=== PATIENT | female | born 1970 | race Caucasian/White ===

== ENCOUNTER 2019-09-01 15:28 | Emergency (ER) | payer BC, SELFPAY ==
[2019-09-01 15:55] VITALS: BP 150/81; PULSE 83; RESP 19; TEMP 36.8; O2SAT 100; BMI 26.5
--- NOTE | 2019-09-01 16:02 | HMH.EDUTC ---
[facility] [place] Disposition Clinical Impression: Upper respiratory infection Qualifiers: URI type: unspecified URI Qualified Code(s): J06.9 - Acute upper respiratory infection, unspecified Disposition: Home, Self-Care Condition on Discharge: Good Instructions: Sore Throat, DI for Fever (Symptom) -- Adult, Acetaminophen (Alternative Therapy), Preventing the Spread of Coronavirus Discharge Instructions Additional Instructions: You was given handout with instructions on how to Self Quarantine while awaiting your COVID results and how to Self Isolate if you have a positive result make sure to follow these instructions closely No work until negative COVID test *Monitor Temp, Over the counter Motrin or Tylenol as directed/as needed Tylenol every 4 hours and Motrin every 6 hours (as long as your family doctor has told you that you can take it) for fever or pain. and straight to ER if unable to lower temp less than 101.0 after medication given *Warm salt water gargles may help to soothe the throat *Throat Lozenges *Warm fluids like tea with honey may help to soothe the throat *Sleep elevated *Humidifier/Vaporizer Follow up IMMEDIATELY for new or worsening symptoms or no Noticeable improvement over the next 48-72 hours. 911 for difficulty breathing or swallowing Straight to ER if any life threatening symptoms Prescriptions: Fluticasone Propionate [Flonase 50mcg nasal spray 16gm] 1 spr NS DAILY #1 bottle Transmission Status: Pending to [id number] Azithromycin [Z-Leonidas 250mg Tab] 250 mg PO DIRECTED #6 tab Transmission Status: [id number] Referrals: Joanna Gonzalez PA [Primary Care Provider] - As needed Forms: Work/School Release Medical Decision Making - Venancio Inquiry Pt receiving controlled substance: No Venancio was queried for this patient: No Vital Signs: 09/01/19 15:55 Temperature 98.2 F Temperature Source Temporal Artery Scan Pulse Rate [Right Brachial] 83 Respiratory Rate 19 Blood Pressure [Right Arm] 150/81 H Blood Pressure Mean [Right Arm] 104 Blood Pressure Source [Right Arm] Automatic Cuff Blood Pressure Position [Right Arm] Sitting 02 Sat by Pulse Oximetry 100 Oxygen Delivery Method Room Air - Lab Data Lab results reviewed: Yes: I reviewed the patient's lab results. Orders (Tests/Meds): ORDERS Category Date Time Status SARS-CoV-2, MARCE[place]O ([place]) Stat Lab 09/01/19 15:41 Ordered [facility] HPI - General Stated complaint: fever,sore throat,congestion,cough,body pain Time Seen by Provider: 09/01/19 16:02 Mode of Arrival: Ambulatory Source of Information: Patient Limitations: No Limitations Description of Symptoms (Recalled from Triage Doc. by RN): flu like symptoms, sore throat, exposure to covid positive person HEENT Symptoms (Recalled from RN notes): Yes Resp Symptoms (Recalled from RN notes): Yes Skin Symptoms (Recalled from RN notes): No MS Symptoms (Recalled from RN notes): No Functional Status (Recalled from RN notes): none - History of Present Illness Provider Complaint: Patient states that she has worked beside several people who has tested positive for COVID19 States that for the last couple of days she has been having sore throat and feeling achy all over like she has the flu States that today she was still feeling bad so she came in to get checked for strep and COVID - Related Data Home Medications Medication Instructions Recorded Confirmed Rosuvastatin Calcium 10 mg PO DAILY 09/01/19 09/01/19 hydroCHLOROthiazide [HCTZ 12.5mg 12.5 mg PO DAILY 09/01/19 09/01/19 cap] lisinopriL [Lisinopril 20mg Tab] 20 mg PO DAILY 09/01/19 09/01/19 Previous Rx's Medication Instructions Recorded Azithromycin [Z-Leonidas 250mg Tab] 250 mg PO DIRECTED #6 tab 09/01/19 Fluticasone Propionate [Flonase 1 spr NS DAILY #1 bottle 09/01/19 50mcg nasal spray 16gm] Allergies Allergy/AdvReac Type Severity Reaction Status Date / Time Sulfa (Sulfonamide Allergy
[2019-09-01 16:10] VITALS: BP 150/81; PULSE 83; RESP 19; TEMP 36.8; O2SAT 100
[2019-09-01 16:56] LABS: UTC Strep Screen (Rapid) Negative (Negative)
[2019-09-04 06:20] LABS: Covid-19 Nasal PCR Sendout UK NOT DETECTED
== END 2019-09-01 16:12 | disposition home or self-care (01) ==
PROVIDERS: Emergency Provider Nurse Practitioner; PCP Nurse Practitioner Family
DX: Z20.828 Contact with and (suspected) exposure to other viral communicable diseases (principal); J06.9 Acute upper respiratory infection, unspecified; I10 Essential (primary) hypertension; Z88.2 Allergy status to sulfonamides; F17.210 Nicotine dependence, cigarettes, uncomplicated
CPT/HCPCS: 87880; 99202; U0003

== ENCOUNTER 2020-09-28 09:04 | Emergency (ER) | payer BC, SELFPAY ==
[2020-09-28 09:20] VITALS: BP 170/98; PULSE 81; RESP 18; TEMP 37; O2SAT 97; BMI 29.9
--- NOTE | 2020-09-28 09:44 | HMH.EDUTC ---
[facility] [place] Clinical Impression: [place] eye disease of right eye Disposition: Home, Self-Care Condition on Discharge: Good Instructions: DI for Conjunctivitis Additional Instructions: follow up with eye md tomorrow drops as ordered if symptoms worsen return or be seen in ed Prescriptions: Erythromycin Base [Erythromycin 1gm opth ointment] 1 gm OP BID 7 Days #1 tube Transmission Status: Pending to [id number] Referrals: Provider,Referral, MD [Primary Care Provider] - Time of Disposition: 09:50 Medical Decision Making - Venancio Inquiry Pt receiving controlled substance: No Vital Signs: 09/28/20 09:20 Temperature 98.6 F Temperature Source Oral Pulse Rate [Right Brachial] 81 Respiratory Rate 18 Blood Pressure [Right Arm] 170/98 H Blood Pressure Mean [Right Arm] 122 Blood Pressure Source [Right Arm] Automatic Cuff Blood Pressure Position [Right Arm] Sitting 02 Sat by Pulse Oximetry 97 Oxygen Delivery Method Room Air [facility] [place] HPI - General Chief complaint: Urgent Treatment Center Stated complaint: right eye pain and swelling Time Seen by Provider: 09/28/20 09:44 Mode of Arrival: Ambulatory Source of Information: Patient Limitations: No Limitations Description of Symptoms (Recalled from Triage Doc. by RN): PATIENT C/O SWELLING, REDNESS AND DRAINAGE TO RIGHT EYE. SHE HAS BEEN SEEING HER PCP AND EYE DOCTOR FOR A FEW MONTHS FOR THIS PROBLEM HEENT Symptoms (Recalled from RN notes): No Resp Symptoms (Recalled from RN notes): No Skin Symptoms (Recalled from RN notes): No MS Symptoms (Recalled from RN notes): Yes Functional Status (Recalled from RN notes): WNL - History of Present Illness Provider Complaint: 49 yr old female presents for swelling, redness and drainage to rt eye. pt states she saw eye md a few months ago for same problem in the left eye. pt states she has been using the eye drops that were prescribed the last time but they have not helped. - Related Data Home Medications Medication Instructions Recorded Confirmed Rosuvastatin Calcium 10 mg PO DAILY 09/01/19 09/01/19 hydroCHLOROthiazide [HCTZ 12.5mg 12.5 mg PO DAILY 09/01/19 09/01/19 cap] lisinopriL [Lisinopril 20mg Tab] 20 mg PO DAILY 09/01/19 09/01/19 Previous Rx's Medication Instructions Recorded Azithromycin [Z-Leonidas 250mg Tab] 250 mg PO DIRECTED #6 tab 09/01/19 Fluticasone Propionate [Flonase 1 spr NS DAILY #1 bottle 09/01/19 50mcg nasal spray 16gm] Erythromycin Base [Erythromycin 1 gm OP BID 7 Days #1 tube 09/28/20 1gm opth ointment] Allergies Allergy/AdvReac Type Severity Reaction Status Date / Time Sulfa (Sulfonamide Allergy Verified 09/01/19 15:53 Antibiotics) - Worker's Comp Is this a Worker's Comp case?: No [facility] History - Hepatitis A Screen Drug use history?: No High risk sexual behaviors?: No History of sexually transmitted infection?: No Currently employed?: No Childcare worker?: No Do you have indoor plumbing?: Yes Do you have electricity?: Yes Attestation statement:: This patient has been screened for Hepatitis A risk factors. I have reviewed the patient's past medical history: Yes Medical History: Denies:: Cancer, Diabetes Mellitus Type 1, Diabetes Mellitus Type 2, Internal Pacemaker, MRSA Other Surgeries: No: Pacemaker Amputation: No Fractures: No - Social History Smoking Status: Current every day smoker Tobacco Type: cigarettes # Packs/Day (cigarettes): 1 Alcohol Intake: never Occupational Status: employed ROS Obtained: Yes Systems reviewed as appropriate & no additional complaints - Constitutional Constitutional: Reports system reviewed and no additional complaints, except as docu, Denies fever(s) - Eyes Eyes: Reports system reviewed and no additional complaints, except as docu, Reports as per HPI, Denies blurry vision, Denies change in vision, Reports eye discharge, Denies floaters, Reports irritation, Reports itchy eyes, Denies sensitivity to
[2020-09-28 09:50] VITALS: BP 170/98; PULSE 81; RESP 18; TEMP 37; O2SAT 97
== END 2020-09-28 09:54 | disposition home or self-care (01) ==
PROVIDERS: Emergency Provider Nurse Practitioner Family
DX: H10.021 Other mucopurulent conjunctivitis, right eye (principal); F17.210 Nicotine dependence, cigarettes, uncomplicated
CPT/HCPCS: 99202; G0463

== ENCOUNTER → 2021-04-02 08:09 | Outpatient (CLI) | payer BC, SELFPAY ==
[2021-04-02 08:49] LABS: Adenovirus,PCR Not Detected (NotDetected); Bordetella Pertussis Not Detected (NotDetected); Chlamydophila Pneumoniae, PCR Not Detected (NotDetected); Coronavirus 229E Not Detected (NotDetected); Coronavirus NL63 Not Detected (NotDetected); Coronavirus OC43 Not Detected (NotDetected); Coronovirus HKU1,PCR Not Detected (NotDetected); Human Metapneumovirus Not Detected (NotDetected); Influenza A, PCR Not Detected (NotDetected); Influenza AH1, 2009 Not Detected (NotDetected); Influenza AH1, PCR Not Detected (NotDetected); Influenza AH3,PCR Not Detected (NotDetected); Influenza B, PCR Not Detected (NotDetected); Mycoplasma Pneumoniae, PCR Not Detected (NotDetected); Parainfluenza 1, PCR Not Detected (NotDetected); Parainfluenza 2, PCR Not Detected (NotDetected); Parainfluenza 3, PCR Not Detected (NotDetected); Parainfluenza 4, PCR Not Detected (NotDetected); Respiratory Syncytial Virus Not Detected (NotDetected); Rhinovirus/Enterovirus Not Detected (NotDetected)
== END ==
PROVIDERS: PCP Nurse Practitioner Family; Visit Provider Nurse Practitioner Family
DX: J20.9 Acute bronchitis, unspecified (principal); J02.9 Acute pharyngitis, unspecified
CPT/HCPCS: 87486; 87581; 87632; 87798

== ENCOUNTER 2022-02-27 09:13 | Emergency (ER) | payer BC, SELFPAY ==
[2022-02-27 09:35] VITALS: BP 137/79; PULSE 97; RESP 19; TEMP 37.3; O2SAT 98; BMI 31.3
[2022-02-27 10:13] LABS: UTC Influenza A Antigen Negative (Negative)
[2022-02-27 10:13] LABS: UTC Strep Screen (Rapid) Negative (Negative)
[2022-02-27 10:14] LABS: UTC Influenza B Antigen Negative (Negative)
--- NOTE | 2022-02-27 10:14 | EXP.UTC ---
Discharge Plan Disposition Patient Disposition: Home, Self-Care Condition: Good Prescriptions Prescriptions: No Action lisinopril 20 MG tablet 20 mg PO DAILY hydrochlorothiazide 12.5 MG capsule 12.5 mg PO DAILY rosuvastatin 10 MG tablet 10 mg PO DAILY azithromycin 250 MG tablet 250 mg PO DIRECTED Qty: 6 0RF Rx Instructions: Take two (2) tablets on day #1, then one (1) tablet day #2 thru #5 fluticasone propionate 120 SPR/BOT bottle 1 spr NS DAILY Qty: 1 0RF Rx Instructions: each nostril daily erythromycin 1 GM ointment 1 gm OP BID 7 Days Qty: 1 0RF Rx Instructions: apply to bottom lid of rt eye bid Referrals Follow up/Referrals: Provider,Referral, MD [Primary Care Provider] - See instructions Activity Restrictions/Add. Instructions Additional Instructions/Restrictions: No sign of a bacterial infection. Likely viral. Viruses can take 7-14 days to run their course. Nasal saline and bulb syringe or nose Cari to remove nasal drainage to help with nasal congestion. Hard to eat, drink, sleep with nasal congestion so important to keep this cleaned out. Monitor temp. Tylenol or Motrin as needed for pain or fever Encourage fluids, water, Gatorade, Powerade, Pedialyte if infant/toddler/child Warm salt water gargles Warm fluids Sore throat lozenges Sleep elevated Humidifier/vaporizer Follow-up immediately for new or worsening symptoms or no noticeable improvement over the next 48-72 hours. Clinical Impressions Clinical Impression: Upper respiratory infection Instructions Patient Instructions: DI for Viral Upper Respiratory Infection -- Adult Discharge ED Provider: Mason ([facility] [facility] [place] General Stated complaint: weakness, cough, sore throat Mode of Arrival: Ambulatory Source of Information: Patient Limitations: No Limitations Time Seen by Provider: 02/27/22 10:14 Description of Symptoms (Recalled from Triage Doc. by RN): PATIENT C/O BODY ACHES, CHILLS, COUGH AND FEVER SINCE YESTERDAY HEENT Symptoms (Recalled from RN notes): No Resp Symptoms (Recalled from RN notes): Yes Skin Symptoms (Recalled from RN notes): No MS Symptoms (Recalled from RN notes): No Functional Status (Recalled from RN notes): WNL History of Present Illness Provider Complaint: 51 yr old female presents for body aches,chills,fever, cough, nasal congestion and scratchy throat for 2 days Related Data Home Medications Medication Instructions Recorded Confirmed hydrochlorothiazide 12.5 mg capsule 12.5 mg PO DAILY High blood 09/01/19 09/01/19 pressure lisinopril 20 mg tablet 20 mg PO DAILY High blood pressure 09/01/19 09/01/19 rosuvastatin 10 mg tablet 10 mg PO DAILY Cholesterol 09/01/19 09/01/19 Previous Rx's Medication Instructions Recorded azithromycin 250 mg tablet 250 mg PO DIRECTED #6 tabs 09/01/19 fluticasone propionate 50 1 spr NS DAILY ##1 09/01/19 mcg/actuation nasal spray,suspension erythromycin 5 mg/gram (0.5 %) eye 1 gm OP BID 7 days #1 tube 09/28/20 ointment Allergies Allergy/AdvReac Type Severity Reaction Status Date / Time Sulfa (Sulfonamide Allergy Verified 09/01/19 15:53 Antibiotics) Worker's Comp Is this a Worker's Comp case?: No [facility] Disclaimer: The information contained in this section may have been updated after the patient was seen, as this information can be updated by other users. Medical History , [employer]) Hyperlipidemia Hypertension Kidney stone Surgical History , [employer]) History of tubal ligation Social History , [employer]) Smoking Status: Current every day smoker tobacco type: cigarettes packs per day: 1 alcohol intake: never current occupational status: employed Travel in the last 8 weeks: None caffeine: Yes ROS Obtained: Yes All system
[2022-02-27 10:31] VITALS: BP 137/79; PULSE 97; RESP 19; TEMP 37.3; O2SAT 98
== END 2022-02-27 10:33 | disposition home or self-care (01) ==
PROVIDERS: Emergency Provider Nurse Practitioner Family
DX: U07.1 COVID-19 (principal); R53.1 Weakness; R05.9 Cough, unspecified; J02.9 Acute pharyngitis, unspecified
CPT/HCPCS: 87804; 87880; 99212; 99213; C9803; G0463; U0003; U0005

== ENCOUNTER → 2022-08-18 16:14 | Outpatient (CLI) | payer BC, SELFPAY ==
--- NOTE | 2022-08-18 16:15 | MM_ITS ---
PROCEDURE INFORMATION: Exam: Bilateral Screening 3D Mammography Exam date and time: 08/18/2022 4:07 PM Age: 51 years old Clinical indication: Screening examination TECHNIQUE: Imaging protocol: Bilateral Screening tomosynthesis and 2D mammography including computer-aided detection (CAD) when performed. COMPARISON: MG MAMMO ADDITIONAL VIEWS RT 07/13/2019 9:45 AM FINDINGS: MAMMOGRAPHY: Breast composition: There are scattered areas of fibroglandular density. Mass: None. Architectural distortion: None. Calcifications: No suspicious calcifications. Asymmetric density: None. Skin thickening: None. Axillary adenopathy: None. IMPRESSION: No mammographic evidence of malignancy. Annual screening is recommended unless otherwise clinically indicated. ASSESSMENT: BI-RADS Category 1: Negative
== END ==
PROVIDERS: PCP Plastic Surgery; Visit Provider Obstetrics & Gynecology
DX: Z12.31 Encounter for screening mammogram for malignant neoplasm of breast (principal)
CPT/HCPCS: 77063; 77067

== ENCOUNTER 2022-12-10 18:40 | Emergency (ER) | payer BC, SELFPAY ==
[2022-12-10 19:10] VITALS: BP 126/91; PULSE 87; RESP 18; TEMP 36.6; O2SAT 98; BMI 36.6
--- NOTE | 2022-12-10 19:27 | EXP.UTC ---
Discharge Plan Disposition Patient Disposition: Home, Self-Care Condition: Good Prescriptions Prescriptions: New cephalexin 500 mg capsule 500 mg PO QID Qty: 40 0RF mupirocin 2 % ointment 1 applic topical TID 7 Days Qty: 15 0RF No Action lisinopril 40 mg tablet 40 mg PO DAILY Patient Comments: TAKE 1 TABLET BY MOUTH ONCE DAILY clonidine HCl 0.1 mg tablet 0.1 mg PO BID rosuvastatin 40 mg tablet 40 mg PO DAILY celecoxib 200 mg capsule 200 mg PO DAILY Patient Comments: TAKE 1 CAPSULE BY MOUTH ONCE DAILY Referrals Follow up/Referrals: Chester Colón MD [Staff Physician] - See instructions Provider,MD Carlso [Primary Care Provider] - See instructions Activity Restrictions/Add. Instructions Additional Instructions/Restrictions: Keep the affected area clean and dry. Follow up with your regular doctor. Take the antibiotics as directed and apply the topical antibiotics as directed. Apply warm wet compresses to the affected area three or four times per day. GO TO THE ER FOR ANY WORSENING SYMPTOMS I put in a referral to Dr. Colón (surgeon). Please call his office and get an appointment to be evaluated there. Clinical Impressions Clinical Impression: Abscess of breast, left, Cellulitis of left breast Instructions Patient Instructions: Cellulitis Discharge ED Provider: Johnny Huerta [facility] General Stated complaint: left breast boil, pain in area Time Seen by Provider: 12/10/22 19:27 History of Present Illness Provider Complaint: She states that for the past 3 days she has had a red painful area on the bottom of her right breast. She denies any fever/chills. She denies any nipple discharge. Related Data Home Medications Medication Instructions Recorded Confirmed celecoxib 200 mg capsule 200 mg PO DAILY 08/13/22 12/10/22 clonidine HCl 0.1 mg tablet 0.1 mg PO BID 08/13/22 12/10/22 lisinopril 40 mg tablet 40 mg PO DAILY 08/13/22 12/10/22 rosuvastatin 40 mg tablet 40 mg PO DAILY 08/13/22 08/13/22 Previous Rx's Medication Instructions Recorded cephalexin 500 mg capsule 500 mg PO QID #40 caps 12/10/22 mupirocin 2 % topical ointment 1 applic topical TID 7 days #15 12/10/22 grams Allergies Allergy/AdvReac Type Severity Reaction Status Date / Time Sulfa (Sulfonamide Allergy Verified 12/10/22 19:36 Antibiotics) [facility] Disclaimer: The information contained in this section may have been updated after the patient was seen, as this information can be updated by other users. Medical History (Updated 12/10/22 @ 19:52 by Johnny Huerta APRN) Hyperlipidemia Hypertension Kidney stone Surgical History History of elbow surgery History of tubal ligation Family History Other Diabetes Heart attack Social History Smoking Status: Current every day smoker tobacco type: cigarettes packs per day: 1 alcohol intake: never current occupational status: employed Travel in the last 8 weeks: None caffeine: Yes ROS Obtained: Yes All systems reviewed & no additional complaints except as documented Constitutional Constitutional: Denies chills and Denies fever(s) Eyes Eyes: Denies eye discharge ENT Ears, Nose, Mouth, and Throat: Denies dizziness, Denies otalgia and Denies sore throat Cardiovascular Cardiovascular: Denies chest pain Respiratory Respiratory: Denies shortness of breath, Denies chest congestion, Denies cough, Denies stridor and Denies wheezing Gastrointestinal Gastrointestingal: Denies nausea or vomiting Musculoskeletal Musculoskeletal: Reports system reviewed and no additional complaints, except as documented and Denies arthralgias Integumentary/Breasts Skin/Breast: Reports as per HPI Neurologic Neurologic: Denies dizziness and Denies paresthesias All
[2022-12-10 20:25] VITALS: BP 142/90; PULSE 81; RESP 19; TEMP 36.9; O2SAT 99
== END 2022-12-10 20:25 | disposition home or self-care (01) ==
PROVIDERS: Emergency Provider Nurse Practitioner Family
DX: N61.1 Abscess of the breast and nipple (principal); F17.210 Nicotine dependence, cigarettes, uncomplicated; I10 Essential (primary) hypertension; E78.5 Hyperlipidemia, unspecified
CPT/HCPCS: 96372; 99212; 99214; G0463; J0696

== ENCOUNTER 2023-02-28 16:17 | Emergency (ER) | payer BC, SELFPAY ==
[2023-02-28 16:19] VITALS: BP 155/92; PULSE 90; RESP 18; TEMP 36.6; O2SAT 96; BMI 28.7
--- NOTE | 2023-02-28 16:30 | XR_ITS ---
PROCEDURE INFORMATION: Exam: XR Skull Exam date and time: 02/28/2023 4:43 PM Age: 52 years old Clinical indication: Injury or trauma; Fall; Blunt trauma (contusions or hematomas); Additional info: Fell and hit face TECHNIQUE: Imaging protocol: XR of the skull. Views: Less than 4 views. COMPARISON: CR XR FACIAL BONES MIN 3V 02/28/2023 4:41 PM FINDINGS: Sinuses: Well aerated. No opacification. Bones/joints: No fracture. Soft tissues: Unremarkable. IMPRESSION: Unremarkable.
--- NOTE | 2023-02-28 16:30 | XR_ITS ---
PROCEDURE INFORMATION: Exam: XR Facial Bones, Minimum of 3 Views, Complete Exam date and time: 02/28/2023 4:41 PM Age: 52 years old Clinical indication: Injury or trauma; Fall; Blunt trauma (contusions or hematomas); Head/scalp; Without loss of consciousness; Additional info: Fell and hit face TECHNIQUE: Imaging protocol: XR of the facial bones, minimum of 3 views. Complete exam. COMPARISON: No relevant prior studies available. FINDINGS: Sinuses: Well aerated. No opacification. Bones/joints: No fracture. Dental: The patient is edentulous Soft tissues: Unremarkable. IMPRESSION: No acute findings.
--- NOTE | 2023-02-28 16:33 | ED_ITS ---
Discharge Plan Disposition Patient Disposition: Home, Self-Care Condition: Good Prescriptions Prescriptions: No Action lisinopril 40 mg tablet 40 mg PO DAILY Patient Comments: TAKE 1 TABLET BY MOUTH ONCE DAILY clonidine HCl 0.1 mg tablet 0.1 mg PO BID celecoxib 200 mg capsule 200 mg PO DAILY Patient Comments: TAKE 1 CAPSULE BY MOUTH ONCE DAILY linezolid [Zyvox] 600 mg tablet 600 mg PO BID Qty: 14 0RF Referrals Follow up/Referrals: Provider,Referral, MD [Primary Care Provider] - See instructions Activity Restrictions/Add. Instructions Additional Instructions/Restrictions: Take tylenol for pain for the next 24 hours. Avoid taking ibuprofen for aspirin because they could thin your blood. Follow up with your regular doctor. 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 When she slipped she fell forward and hit the left side of her head on her car door. She states that since then she has had pain of the left side of her head. She denies any loss of consciousness. She denies dizziness, confusion, vision changes or any other symptoms. She denies nausea/vomiting. Related Data Home Medications Medication Instructions Recorded Confirmed celecoxib 200 mg capsule 200 mg PO DAILY 08/13/22 02/28/23 clonidine HCl 0.1 mg tablet 0.1 mg PO BID 08/13/22 02/28/23 lisinopril 40 mg tablet 40 mg PO DAILY 08/13/22 02/28/23 Previous Rx's Medication Instructions Recorded linezolid 600 mg tablet (Zyvox) 600 mg PO BID #14 tabs 12/14/22 Allergies Allergy/AdvReac Type Severity Reaction Status Date / Time Sulfa (Sulfonamide Allergy Verified 02/28/23 16:40 Antibiotics) [facility] Disclaimer: The information contained in this section may have been updated after the patient was seen, as this information can be updated by other users. Medical History Hyperlipidemia Hypertension Kidney stone Surgical History History of elbow surgery History of tubal ligation Family History Other Diabetes Heart attack Social History Smoking Status: Current every day smoker tobacco type: cigarettes packs per day: 1 alcohol intake: never current occupational status: employed Travel in the last 8 weeks: None caffeine: Yes ROS Obtained: Yes All systems reviewed & no additional complaints except as documented Constitutional Constitutional: Denies chills, Denies fever(s), Reports headache(s) and Denies weakness Eyes Eyes: Denies eye discharge and Denies loss of vision ENT Ears, Nose, Mouth, and Throat: Denies abnormal hearing, Denies disequilibrium, Denies dizziness, Denies otalgia, Reports headache(s), Denies sore throat and Denies vertigo Cardiovascular Cardiovascular: Denies chest pain and Denies syncope Respiratory Respiratory: Denies shortness of breath, Denies chest congestion, Denies cough, Denies stridor and Denies wheezing Gastrointestinal Gastrointestingal: Denies nausea or vomiting Musculoskeletal Musculoskeletal: Reports system reviewed and no additional complaints, except as documented, Denies arthralgias, Denies numbness and Denies tingling Integumentary/Breasts Skin/Breast: Denies rash and Denies wounds Neurologic Neurologic: Denies abnormal hearing, Denies confusion, Denies disequilibrium, Denies dizziness, Denies focal weakness, Reports headache(s), Denies lack of coordination, Denies loss of vision, Denies memory loss, Denies numbness, Denies other visual disturbances, Denies paresthesias, Denies seizure-like activity, Denies syncope, Denies tingling, Denies tremor(s), Denies vertigo and Denies weakness Allergic/Immunologic Allergic/Immunologic: Denies wheezing Physical Exam General General appearance: alert and in no apparent distress Head Head exam: atraumatic, normocephalic and normal inspection Eye Eye exam: Present normal appearance, PERRL and EOMI ENT ENT exam: Present normal exam, normal oropharynx, mucous membranes moist, TM's normal bilaterally and normal external ear exam Neck Neck exam: Present normal inspection, full ROM and trachea midline; Absent meningismus or lymphadenopathy Chest Chest inspection: Present normal inspection and symmetric chest wall rise; Absent tenderness Respiratory Respiratory exam: Present normal lung sounds bilaterally; Absent respiratory distress Cardiovascular Cardiovascular exam: Present regular rate and normal rhythm; Absent JVD Abdominal Exam Abdominal exam: Present soft and normal bowel sounds; Absent distention, tenderness or guarding Extremities Exam Extremities exam: Present normal inspection, full ROM and normal capillary refill; Absent calf tenderness Back Exam Back exam: Present normal inspection; Absent tenderness Neurological Exam Neurological exam: Present alert, oriented X3, CN II-XII intact, normal gait and reflexes normal; Absent motor sensory deficit Expanded Neurological Exam Patient oriented to: Present person, place and time Speech: Present fluid speech Cranial nerves: Normal: EOM function (II, III, IV, ), facial sensation (V), facial palsy (VII), gag reflex (IX), spinal accessory function (XI) and tongue deviation (XII) Cerebellar function: normal gait Motor strength - LUE: 5/5 Motor strength - RUE: 5/5 Motor strength - LLE: 5/5 Motor strength - RLE: 5/5 Upper motor neuron exam: Normal: sandip neglect and sensory extinction Sensory exam upper extremity: Normal: light touch and 2 point discrimination Sensory exam lower extremity: Normal: light touch and 2 point discrimination DTR: 2+: biceps (L), biceps (R), patellar (L), patellar (R), Achilles tendon (L) and Achilles tendon (R) Psychiatric Psychiatric exam: Present normal affect and normal mood Skin Skin exam: Present warm, dry, intact and normal color Lymphatic Lymphatic Findings: no adenopathy Medical Decision Making Medical Records Medical records reviewed: No I reviewed the patient's medical records. Venancio Inquiry Pt receiving controlled substance: No Orders (Tests/Meds): ORDERS Category Date Time Status Skull XR less than 4 views [XR skull <4V] Stat Exams 02/28/23 16:30 Ordered XR facial bones min 3V Stat Exams 02/28/23 16:30 Ordered
[2023-02-28 17:35] VITALS: BP 155/92; PULSE 90; RESP 18; TEMP 36.6; O2SAT 96
== END 2023-02-28 17:35 | disposition home or self-care (01) ==
PROVIDERS: Emergency Provider Nurse Practitioner Family
DX: S09.90XA Unspecified injury of head, initial encounter (principal); W00.0XXA Fall on same level due to ice and snow, initial encounter; F17.210 Nicotine dependence, cigarettes, uncomplicated; I10 Essential (primary) hypertension; E78.5 Hyperlipidemia, unspecified
CPT/HCPCS: 70150; 70250; 99212; 99214; G0463

== ENCOUNTER 2023-04-05 21:34 | Emergency (ER) | payer BC, SELFPAY ==
[2023-04-05 21:36] VITALS: BP 151/96; PULSE 78; RESP 17; TEMP 36.4; O2SAT 97; BMI 28.7
--- NOTE | 2023-04-05 21:57 | XR_ITS ---
PROCEDURE INFORMATION: Exam: XR Chest Exam date and time: 04/05/2023 10:06 PM Age: 52 years old Clinical indication: Pain; Other: Left arm; Additional info: Pain going down L arm, L arm vein prominence TECHNIQUE: Imaging protocol: Radiologic exam of the chest. Views: 1 view. COMPARISON: No relevant prior studies available. FINDINGS: Lungs: No consolidation. Pleural spaces: No pleural effusion. No pneumothorax. Heart/Mediastinum: No cardiomegaly. Calcified atherosclerotic changes of the thoracic aorta. Bones/joints: Unremarkable. IMPRESSION: No acute pulmonary findings.
--- NOTE | 2023-04-05 22:05 | ECG_ITS ---
APPROVED REPORT Exam: Resting ECG HR:65 bpm ECG Measurements Heart Rate 65 AXES OK 161 P 64 QRSd 118 QRS 52 QT 435 T 53 QTc 447 Conclusion SINUS RHYTHM WITH SINUS ARRHYTHMIA Inferior Q waves do not reach a level of significance Late R wave progression ABNORMAL ECG UNCONFIRMED REPORT Electronically signed by : Jaswinder Corbin MD 04/06/2023 10:04:14
--- NOTE | 2023-04-05 22:08 | ED_ITS ---
Discharge Plan Disposition Patient Disposition: Home, Self-Care Condition: Good Prescriptions Prescriptions: No Action lisinopril 40 mg tablet 40 mg PO DAILY Patient Comments: TAKE 1 TABLET BY MOUTH ONCE DAILY clonidine HCl 0.1 mg tablet 0.1 mg PO BID celecoxib 200 mg capsule 200 mg PO DAILY Patient Comments: TAKE 1 CAPSULE BY MOUTH ONCE DAILY linezolid [Zyvox] 600 mg tablet 600 mg PO BID Qty: 14 0RF Referrals Follow up/Referrals: Aleks Sharma APRN [Primary Care Provider] - See instructions Activity Restrictions/Add. Instructions Additional Instructions/Restrictions: You were evaluated in the emergency department today. Please keep a log of your blood pressures at home. I recommend checking it twice a day, once in the morning and once at night. Present primary care provider with a log of your blood pressure to see if medication changes need to be made. Return to the emergency department for new or worsening symptoms. Clinical Impressions Clinical Impression: Hand pain, left, Headache, High blood pressure Instructions Patient Instructions: DI for High Blood Pressure, DI for Headache, DI for Hand Pain Discharge ED Provider: Gina Aquino General Adult HPI General Chief complaint: Weakness Stated complaint: ARRIAZA, hands are hurting, exhausted Time Seen by Provider: 04/05/23 21:43 Mode of Arrival: Ambulatory Source of Information: Patient Limitations: No Limitations Description of Symptoms (Recalled from ER Triage Doc. by RN): patient ambulatory to ED with complaints of increased weakness and lethargy x 24 hrs. States that she started atorvastatin last night and since taking medication has increased lethargy. Headache present with sinus congestion. Also c/o left hand pain. History of Present Illness HPI narrative: This patient is a 52-year-old female with a history of hypertension managed on lisinopril and clonidine presenting to the emergency department for evaluation with concern for not feeling well for the last day. She states that she d ischarged taking atorvastatin last night and has felt tired since. She complains of headache, sinus congestion, and left hand pain. She states that she has had prominence of the veins in her left arm. She uses her left hand a lot using tools at her job, but with all the symptoms combined she decided to come in for evaluation. No significant swelling, redness, or skin changes to her left arm. No significant chest pain, shortness of breath, or other concerns. She denies experiencing the following this in the past. Related Data Home Medications Medication Instructions Recorded Confirmed celecoxib 200 mg capsule 200 mg PO DAILY 08/13/22 02/28/23 clonidine HCl 0.1 mg tablet 0.1 mg PO BID 08/13/22 02/28/23 lisinopril 40 mg tablet 40 mg PO DAILY 08/13/22 02/28/23 Previous Rx's Medication Instructions Recorded linezolid 600 mg tablet (Zyvox) 600 mg PO BID #14 tabs 12/14/22 Allergies Allergy/AdvReac Type Severity Reaction Status Date / Time Sulfa (Sulfonamide Allergy Verified 02/28/23 16:40 Antibiotics) [facility] Disclaimer: The information contained in this section may have been updated after the patient was seen, as this information can be updated by other users. Medical History Hyperlipidemia Hypertension Kidney stone Surgical History History of elbow surgery History of tubal ligation Family History Other Diabetes Heart attack Social History Smoking Status: Current every day smoker tobacco type: cigarettes packs per day: 1 alcohol intake: never current occupational status: employed Travel in the last 8 weeks: None caffeine: Yes ROS Obtained: Yes All systems reviewed & no additional complaints except as documented Physical Exam General General appearance: alert and in no apparent distress Head Head exam: atraumatic and normocephalic Eye Eye exam: Present normal appearance, PERRL and EOMI ENT ENT exam: Present normal exam, normal oropharynx, mucous membranes moist and normal external ear exam Neck Neck exam: Present normal inspection, full ROM and trachea midline; Absent tenderness Chest Chest inspection: Present normal inspection and symmetric chest wall rise; Absent tenderness Respiratory Respiratory exam: Present normal lung sounds bilaterally; Absent respiratory distress, wheezes, stridor or accessory muscle use Cardiovascular Cardiovascular exam: Present regular rate and normal rhythm Abdominal Exam Abdominal exam: Present soft; Absent distention, tenderness or guarding Extremities Exam Extremities exam: Present normal inspection, full ROM, normal capillary refill and other (no significant swelling of the L arm, no significant erythema or other skin color changes, 2+ pulses and completely NVI); Absent tenderness or edema Back Exam Back exam: Present normal inspection and full ROM; Absent tenderness Neurological Exam Neurological exam: Present alert, oriented X3, CN II-XII intact and normal gait; Absent motor sensory deficit Psychiatric Psychiatric exam: Present normal affect and normal mood Skin Skin exam: Present warm and dry Medical Decision Making Medical Records Medical records reviewed: Yes I reviewed the patient's medical records. Venancio Inquiry Pt receiving controlled substance: No Vital Signs: 04/05/23 21:36 04/05/23 23:10 Temperature 97.5 F L 97.9 F Temperature Source Oral Oral Pulse Rate 67 Pulse Rate [Right] 78 Respiratory Rate 17 16 Blood Pressure 135/83 Blood Pressure [Right Arm] 151/96 H Blood Pressure Mean [Right Arm] 114 Blood Pressure Source Automatic Cuff Blood Pressure Source [Right Arm] Automatic Cuff Blood Pressure Position Sitting Blood Pressure Position [Right Arm] Sitting 02 Sat by Pulse Oximetry 97 Oxygen Delivery Method Room Air Room Air Lab Data Lab results reviewed: Yes I reviewed the patient's lab results. Lab Results 04/05/23 22:00: WBC 11.7 H, RBC 4.52, Hgb 14.8, Hct 43.9, MCV 97.1, MCH 32.8 H, MCHC 33.7, RDW 13.6, Plt Count 257, MPV 9.0, Neut % (Auto) 68.1, Lymph % (Auto) 23.2, Gillespie % (Auto) 6.0, Eos % (Auto) 2.4, Baso % (Auto) 0.3, Neut # (Auto) 8.0 H, Lymph # (Auto) 2.7, Gillespie # (Auto) 0.7, Eos # (Auto) 0.3, Baso # (Auto) 0.0, D-Dimer 0.34, Sodium 141, Potassium 3.6, Chloride 108 H, Carbon Dioxide 26, Anion Gap 10.6, BUN 22 H, Creatinine 0.80, Estimated Creat Clear 115, Estimated GFR 75, Est GFR ( Amer) 90, Glucose 107 H, Calcium 9.3, Total Bilirubin 0.4, AST 30, ALT 35, Alkaline Phosphatase 78, Total Creatine Kinase 58, Troponin I < 0.01, Total Protein 6.7, Albumin 4.0, Globulin 2.7, Albumin/Globulin Ratio 1.5 04/05/23 22:10: SARS-CoV-2 (PCR) Not detected, Influenza A Untype (PCR) Not detected, Influenza Type B (PCR) Not detected 04/05/23 22:00 04/05/23 22:00 Orders (Tests/Meds): ORDERS Category Date Time Status XR chest portable Stat Exams 04/05/23 21:57 Completed Complete Blood Count Auto Diff Stat Lab 04/05/23 22:00 Completed Comprehensive Metabolic Panel Stat Lab 04/05/23 22:00 Completed Creatine Kinase Stat Lab 04/05/23 22:00 Completed D-Dimer Stat Lab 04/05/23 22:00 Completed Rapid PCR Covid and Flu A/B Stat Lab 04/05/23 22:10 Completed Trop I [Troponin I] Stat Lab 04/05/23 22:00 Completed ECG Data Tracing #1: I reviewed this ECG and interpreted as documented below: Normal sinus rhythm with a ventricular rate of [address] changes concerning for ischemia. Normal axis and intervals. ECG initial impression date: 04/05/23 ECG initial impression time: 22:06 HEART Score History (anamnesis): Slightly suspicious ECG: Normal Age: 45-65 years Risk factors: 1-2 risk factors Troponin: </= normal limit HEART Score: 2 Medical Decision Narrative: In summary, this patient is a 52-year-old female presenting to the Emergency Department for evaluation of headache, congestion, general feeling of unwell, left hand pain, and prominence of the veins of her left upper extremity. Differential diagnoses considered include but are not limited to thoracic outlet syndrome, DVT, ACS, viral syndrome, hypertensive urgency, aortic pathology. Ruling out the most morbid conditions drove assessment. On exam, the patient is nontoxic-appearing. She is completely neurologically in tact with intact pulses in both extremities. No significant swelling of the left upper extremity, and I do not appreciate any venous prominence. She does note that the symptoms started after she started a statin last night. Workup included CBC, CMP, troponin, D-dimer, CK, chest x-ray, and EKG. I independently interpreted XR prior to the radiologist read and noted no obvious large masses or consolidation. Please see their read for final interpretation. Labs were obtained that demonstrated very mild leukocytosis, which is nonspecific. Labs are otherwise reassuring. Normal CK. Negative COVID/flu swab. Negative troponin. D-dimer is negative. On reassessment, patient had no symptoms and is resting comfortably with normal vital signs on cardiac telemetry. Blood pressures in the 120s systolic. At this time, I do not know exactly what is causing the patient's symptoms, however I feel that we have excluded life-threatening causes such as DVT and ACS, so I feel the patient is appropriate for discharge. I advised that the patient follow-up very closely with her primary care provider for further evaluation and management. I also gave her very strict return precautions. She was discharged in stable condition after all questions were answered. Critical Care Critical Care Time Critical Care Time: No
[2023-04-05 22:20] LABS: Basophils % 0.3 % (0.1-2.0); Eosinophils # 0.3 K/mm3 (0.0-0.4); Eosinophils % 2.4 % (0.1-12.0); Hematocrit 43.9 % (37.0-47.0); Hemoglobin 14.8 g/dL (12.2-16.2); Lymphocytes # 2.7 K/mm3 (0.7-4.5); Lymphocytes % 23.2 % (10-50); Mean Corpuscular HGB Conc 33.7 g/dL (31.8-35.4); Mean Corpuscular Hemoglobin 32.8 pg (27.0-31.2); Mean Corpuscular Volume 97.1 fl (81-99); Monocytes # 0.7 K/mm3 (0.1-1.0); Neutrophils % 68.1 % (37.0-80.0); Platelet Count 257 K/mm3 (142-424); Red Blood Count 4.52 M/mm3 (4.20-5.40); Red Cell Distribution Width 13.6 % (11.5-17.5); White Blood Count 11.7 K/mm3 (4.8-10.8)
[2023-04-05 22:24] LABS: Alanine Aminotransferase 35 U/L (12-78); Albumin/Globulin Ratio 1.5 (1.1-1.8); Alkaline Phosphatase 78 U/L (38-126); Anion Gap 10.6 mEq/L (5-15); Aspartate Amino Transferase 30 U/L (14-36); Bilirubin,Total 0.4 mg/dl (0.2-1.3); Blood Urea Nitrogen 22 mg/dl (7-17); Calcium 9.3 mg/dl (8.4-10.2); Carbon Dioxide 26 mmol/L (22.0-30.0); Chloride 108 mmol/L (98-107); Creatine Kinase 58 U/L (30-135); Creatinine Clearance Estimated 115 mL/min (50-200); Estimated Glomerular Filt Rate 75 ml/min (>60); GFR (African American) 90 ML/MIN (>60); Globulin 2.7 g/dL (1.3-3.2); Glucose 107 mg/dl (74-100); Potassium 3.6 mmoL/L (3.5-5.1); Sodium 141 mmol/L (136-145); Total Protein,Serum 6.7 g/dl (6.3-8.2)
[2023-04-05 22:24] LABS: Coronavirus 19, PCR Not Detected (NotDetected); Influenza A, PCR Not Detected (NotDetected); Influenza B, PCR Not Detected (NotDetected)
[2023-04-05 22:28] LABS: D-Dimer 0.34 ug/mL (0.0-0.5)
[2023-04-05 22:41] LABS: Troponin I < 0.01 ng/ml (0.00-0.034)
[2023-04-05 23:10] VITALS: BP 135/83; PULSE 67; RESP 16; TEMP 36.6; O2SAT 99
== END 2023-04-05 23:11 | disposition home or self-care (01) ==
PROVIDERS: Emergency Provider Emergency Medicine; PCP Nurse Practitioner Family
DX: R51.9 Headache, unspecified (principal); R53.1 Weakness; M79.641 Pain in right hand; R53.83 Other fatigue; R09.81 Nasal congestion; E78.5 Hyperlipidemia, unspecified; I10 Essential (primary) hypertension; F17.210 Nicotine dependence, cigarettes, uncomplicated
CPT/HCPCS: 71045; 80053; 82550; 84484; 85025; 85378; 87636; 93005; 99285